=== PATIENT | male | born 1995 | race Caucasian/White ===

== ENCOUNTER 2021-02-13 02:26 | Inpatient (IN) ==
[2021-02-13] MEDS ORDERED: 0.9 % Sodium Chloride 1,000 ML IVC ONE (02:50)
[2021-02-13] MEDS ORDERED: Ringers Solution, Lactated 1,000 ML IVC ONE ×2 (02:50→08:58)
[2021-02-13] MEDS ORDERED: Piperacillin/Tazobactam 3.375 GM in Water for inj. (sterile) 20 ML IVP ONE (02:50)
[2021-02-13] MEDS ORDERED: Isovue-370 500 ML BOTTLE IVP ONE (02:50)
[2021-02-13 03:18] LABS: Basophils % 0.3 %; Red Cell Distribution Width 13.2 % (11.5-14.5)
[2021-02-13 03:19] LABS: Basophils # 0.1 K/mcL (0.0-0.2); Hematocrit 37.1 % (37.5-50.1); Hemoglobin 12.4 g/dL (12.9-16.9); Lymphocytes # 1.6 K/mcL (0.6-4.6); Lymphocytes % 6.5 %; Mean Corpuscular HGB Conc 33.4 g/dL (31.6-35.5); Mean Corpuscular Hemoglobin 28.6 pg (28.0-33.3); Mean Corpuscular Volume 85.7 fL (83.0-100.0); Mean Platelet Volume 10.8 fL (9.4-12.4); Monocytes # 2.2 K/mcL (0.0-1.3); Monocytes % 8.9 %; Platelet Count 139 K/mcL (140-400); Red Blood Count 4.33 M/mcL (4.19-5.50); Segmented Neutrophils % 82.3 %; White Blood Count 24.6 K/mcL (4.3-11.1)
[2021-02-13 03:22] LABS: VBG HCO3 23 mEq/L (21-27); VBG PCO2 34 mmHg (41-51); VBG PH 7.44 pH Units (7.32-7.42); VBG PO2 73 mmHg (25-50)
[2021-02-13 03:24] LABS: Neutrophils # 20.3 K/mcL (1.6-8.9)
[2021-02-13 03:27] LABS: INR 1.6; Prothrombin Time 18.1 Seconds (9.4-12.1)
[2021-02-13] MEDS ORDERED: Ketorolac 30 MG/ML VIAL IVP STA (03:27)
[2021-02-13 03:29] LABS: Activated Partial Thrombo Time 31.7 Seconds (26.0-36.0)
[2021-02-13 03:39] LABS: Alanine Aminotransferase 42 Units/L (7-52); Albumin 2.5 g/dL (3.5-5.7); Albumin/Globulin Ratio 0.6 (1.1-2.2); Alkaline Phosphatase 68 Units/L (34-104); Aspartate Amino Transferase 87 Units/L (13-39); BUN/Creatinine Ratio 19 (6-26); Bilirubin,Direct 0.4 mg/dL (0.0-0.2); Bilirubin,Indirect 0.3 mg/dL (0.0-1.0); Bilirubin,Total 0.7 mg/dL (0.3-1.0); Blood Urea Nitrogen 16 mg/dL (6-20); Calcium 7.6 mg/dL (8.6-10.3); Carbon Dioxide 24 mEq/L (23-29); Chloride 94 mEq/L (98-107); Creatine Kinase 13 Units/L (30-223); Globulin 3.9 g/dL (2.4-3.5); Glucose 190 mg/dL (70-105); Magnesium 1.9 mg/dL (1.6-2.6); Osmolality,Calculated 272 (280-300); Sodium 128 mEq/L (136-145); Total Protein 6.4 g/dL (6.4-8.9); eGFR For African Americans > 60 (> 60); eGFR For Non-African Americans > 60 (> 60)
[2021-02-13 03:44] LABS: Platelet Estimate Normal (Normal)
[2021-02-13] MEDS ORDERED: Lidocaine 1% 20 ML MDV ID ONE (04:02)
[2021-02-13] MEDS ORDERED: *HR* Midazolam HCl 5 MG/ML VIAL IVP ONE (04:02)
[2021-02-13 04:11] LABS: Troponin I < 0.03 ng/mL (< 0.04)
[2021-02-13 04:25] LABS: Adenovirus Not Detected (Not Detect); Bordetella Pertussis Not Detected (Not Detect); Chlamydophila pneumoniae Not Detected (Not Detect); Coronavirus 229E Not Detected (Not Detect); Coronavirus HKU1 Not Detected (Not Detect); Coronavirus NL63 Not Detected (Not Detect); Coronavirus OC43 Not Detected (Not Detect); Human Metapneumovirus Not Detected (Not Detect); Human Rhinovirus/Enterovirus Not Detected (Not Detect); Influenza A Subtype 2009 H1 Not Detected (Not Detect); Influenza B Not Detected (Not Detect); Mycoplasma pneumoniae Not Detected (Not Detect); Parainfluenza Virus 1 Not Detected (Not Detect); Parainfluenza Virus 2 Not Detected (Not Detect); Parainfluenza Virus 3 Not Detected (Not Detect); Parainfluenza Virus 4 Not Detected (Not Detect); Respiratory Syncytial Virus Not Detected (Not Detect); SARS-CoV-2 Not Detected (Not Detect)
[2021-02-13 04:25] LABS: Thyroid Stimulating Hormone 2.375 mcIU/mL (0.340-5.600)
[2021-02-13] MEDS ORDERED: Vancomycin 1,750 MG/517.5 ML IV.SOLN IVPB ONE (05:00)
[2021-02-13] MEDS ORDERED: Naloxone 0.4 MG/ML INJ IVP PRN (05:33)
[2021-02-13] MEDS ORDERED: Melatonin 3 MG TABLET PO PRN (05:33)
[2021-02-13] MEDS ORDERED: D5% in Lactated Ringers 1,000 ML IVC SCH (06:00)
[2021-02-13] MEDS ORDERED: Albumin 25% 25gram/100mL 25 GM/100 ML IV.SOLN IVPB ONE (06:11)
[2021-02-13] MEDS ORDERED: 0.9 % Sodium Chloride 1,000 ML IVC SCH ×2 (06:15→10:30)
[2021-02-13] MEDS ORDERED: Perflutren Lipid Microsphere 1.3 ML in 0.9 % Sodium Chloride 8.7 ML IVP PRN ×2 (06:27→09:15)
[2021-02-13] MEDS ORDERED: Nicotine 14 MG PATCH.TD24 TD SCH (06:30)
[2021-02-13] MEDS ORDERED: Norepinephrine 4 MG/254 ML IV.SOLN IVC SCH (09:30)
[2021-02-13] MEDS ORDERED: Piperacillin/Tazobactam 3.375 GM in 0.9 % Sodium Chloride Mini Bag 100 ML IVPB SCH (11:00)
[2021-02-13] MEDS ORDERED: Magnesium Sulfate 1 GM/102 ML PIGGYBACK IVPB ONE (13:23)
[2021-02-13 16:55] LABS: Acinetobacter baumannii by PCR Not Detected (Not Detect); Candida albicans by PCR Not Detected (Not Detect); Candida glabrata by PCR Not Detected (Not Detect); Candida krusei by PCR Not Detected (Not Detect); Candida parapsilosis by PCR Not Detected (Not Detect); Candida tropicalis by PCR Not Detected (Not Detect); Enterobacter cloacae Cmplx PCR Not Detected (Not Detect); Enterobacteriaceae by PCR Not Detected (Not Detect); Enterococcus by PCR Not Detected (Not Detect); Escherichia coli by PCR Not Detected (Not Detect); Klebsiella oxytoca by PCR Not Detected (Not Detect); Klebsiella pneumoniae by PCR Not Detected (Not Detect); Proteus by PCR Not Detected (Not Detect); Pseudomonas aeruginosa by PCR Not Detected (Not Detect); Serratia marcescens by PCR Not Detected (Not Detect); Staphylococcus aureus by PCR DETECTED (Not Detect); Streptococcus agalactiae(B)PCR Not Detected (Not Detect); Streptococcus by PCR Not Detected (Not Detect); Streptococcus pneumoniae PCR Not Detected (Not Detect); Streptococcus pyogenes (A) PCR Not Detected (Not Detect); mecA Methicillin-Resist Gene Not Detected (Not Detect)
[2021-02-13] MEDS ORDERED: Vancomycin 1,250 MG/262.5 ML IV.SOLN IVPB SCH (17:00)
[2021-02-14] MEDS ORDERED: *HR* Enoxaparin 30 MG/0.3 ML SYRINGE SQ SCH (06:00)
== END 2021-02-13 17:06 | disposition short-term general hospital (02) | DRG 720 ==
LOC: EMEROOARM 02:26 → SUATTDRO 05:40 → 2NNU 05:40
PROVIDERS: ADMIT Internal Medicine; ATTEND Family Medicine

== ENCOUNTER 2021-03-28 14:54 | Inpatient (IN) ==
[2021-03-28 20:21] LABS: Basophils # 0.1 K/mcL (0.0-0.2); Basophils % 0.3 %; Eosinophils # 0.2 K/mcL (0.0-0.6); Eosinophils % 1.3 %; Hematocrit 35.4 % (37.5-50.1); Immature Granulocytes % 0.5 % (0-4); Lymphocytes # 2.9 K/mcL (0.6-4.6); Lymphocytes % 19.1 %; Mean Corpuscular HGB Conc 31.1 g/dL (31.6-35.5); Mean Corpuscular Hemoglobin 27.5 pg (28.0-33.3); Mean Corpuscular Volume 88.5 fL (83.0-100.0); Mean Platelet Volume 8.4 fL (9.4-12.4); Monocytes # 0.7 K/mcL (0.0-1.3); Monocytes % 4.9 %; Neutrophils # 11.1 K/mcL (1.6-8.9); Platelet Count 415 K/mcL (140-400); Red Cell Distribution Width 15.2 % (11.5-14.5); Segmented Neutrophils % 73.9 %; White Blood Count 15.1 K/mcL (4.3-11.1)
[2021-03-28 20:43] LABS: BUN/Creatinine Ratio 8 (6-26); Blood Urea Nitrogen 7 mg/dL (6-20); Calcium 8.6 mg/dL (8.6-10.3); Carbon Dioxide 28 mEq/L (23-29); Chloride 109 mEq/L (98-107); Glucose 100 mg/dL (70-105); Osmolality,Calculated 286 (280-300); Potassium 3.6 mEq/L (3.5-5.1); Sodium 139 mEq/L (136-145); Troponin I < 0.03 ng/mL (< 0.04); eGFR For African Americans > 60 (> 60); eGFR For Non-African Americans > 60 (> 60)
[2021-03-28] MEDS ORDERED: Vancomycin 1,250 MG/262.5 ML IV.SOLN IVPB ONE (20:56)
[2021-03-28] MEDS ORDERED: Isovue-370 500 ML BOTTLE IVP ONE (22:47)
[2021-03-28 22:55] LABS: Albumin 3.5 g/dL (3.5-5.7); Albumin/Globulin Ratio 0.9 (1.1-2.2); Bilirubin,Direct 0.1 mg/dL (0.0-0.2); Bilirubin,Indirect 0.1 mg/dL (0.0-1.0); Bilirubin,Total 0.2 mg/dL (0.3-1.0); Globulin 3.9 g/dL (2.4-3.5); Total Protein 7.4 g/dL (6.4-8.9)
[2021-03-29] MEDS ORDERED: *HR* Heparin 5,000 UNIT/ML VIAL IVP ONE (00:40)
[2021-03-29] MEDS ORDERED: *HR* Heparin 5,000 UNIT/ML VIAL IVP PRN (00:40)
[2021-03-29 01:53] LABS: INR 1.1; Prothrombin Time 12.4 Seconds (9.4-12.1)
[2021-03-29 01:54] LABS: Heparin anti-factor XA UFH < 0.04 IU/mL (0.30-0.70)
[2021-03-29 01:55] LABS: Activated Partial Thrombo Time 30.8 Seconds (26.0-36.0)
[2021-03-29 02:08] LABS: Influenza A PCR Negative (Negative); Influenza B PCR Negative (Negative); Resp. Syncytial Virus PCR Negative (Negative)
[2021-03-29 02:09] LABS: SARS-CoV-2 by PCR (In House) Negative (Negative)
[2021-03-29] MEDS: Heparin 25,000UNIT/250ML 1/2NS 25,000 UNIT/250 ML IV.SOLN IVC SCH (02:14)
[2021-03-29] MEDS ORDERED: Naloxone 0.4 MG/ML INJ IVP PRN (02:24)
[2021-03-29] MEDS ORDERED: Ondansetron 4 MG/2 ML VIAL IVP PRN (02:24)
[2021-03-29] MEDS ORDERED: Ipratropium/Albuterol Neb 3 ML IH PRN (02:27)
[2021-03-29] MEDS ORDERED: 0.9 % Sodium Chloride 500 ML IVC PRN (04:31)
[2021-03-29] MEDS ORDERED: Perflutren Lipid Microsphere 1.3 ML in 0.9 % Sodium Chloride 8.7 ML IVP PRN (04:32)
[2021-03-29 04:49] LABS: Basophils # 0.1 K/mcL (0.0-0.2); Basophils % 0.5 %; Eosinophils # 0.3 K/mcL (0.0-0.6); Hematocrit 34.2 % (37.5-50.1); Hemoglobin 10.7 g/dL (12.9-16.9); Immature Granulocytes % 0.4 % (0-4); Lymphocytes # 4.2 K/mcL (0.6-4.6); Lymphocytes % 31.9 %; Mean Corpuscular HGB Conc 31.3 g/dL (31.6-35.5); Mean Corpuscular Hemoglobin 27.6 pg (28.0-33.3); Mean Corpuscular Volume 88.4 fL (83.0-100.0); Mean Platelet Volume 9.2 fL (9.4-12.4); Monocytes # 0.8 K/mcL (0.0-1.3); Monocytes % 6.3 %; Neutrophils # 7.7 K/mcL (1.6-8.9); Platelet Count 433 K/mcL (140-400); Red Blood Count 3.87 M/mcL (4.19-5.50); Red Cell Distribution Width 15.3 % (11.5-14.5); Segmented Neutrophils % 58.9 %; White Blood Count 13.1 K/mcL (4.3-11.1)
[2021-03-29 05:03] LABS: C-Reactive Protein 6 mg/L (Less than 10); Calcium 8.4 mg/dL (8.6-10.3); Carbon Dioxide 25 mEq/L (23-29); Chloride 109 mEq/L (98-107); Glucose 104 mg/dL (70-105); Sodium 138 mEq/L (136-145); eGFR For African Americans > 60 (> 60); eGFR For Non-African Americans > 60 (> 60)
[2021-03-29 05:04] LABS: BUN/Creatinine Ratio 10 (6-26); Blood Urea Nitrogen 8 mg/dL (6-20); Osmolality,Calculated 285 (280-300)
[2021-03-29] MEDS ORDERED: Piperacillin/Tazobactam 3.375 GM in 0.9 % Sodium Chloride Mini Bag 100 ML IVPB SCH (08:00)
[2021-03-29] MEDS: Lactobacillus 1 EACH CAP.SPRINK PO SCH ×2 (08:18→21:49)
[2021-03-29] MEDS ORDERED: Vancomycin 1,250 MG/262.5 ML IV.SOLN IVPB SCH (10:00)
[2021-03-29] MEDS: ceFAZolin 2,000 MG in 0.9 % Sodium Chloride 100 ML IVPB SCH (15:33)
[2021-03-29] MEDS: Acetaminophen 325 MG TABLET PO PRN (19:03)
[2021-03-29] MEDS: *HR* Heparin 5,000 UNIT/ML VIAL IVP PRN (21:48)
[2021-03-30] MEDS: ceFAZolin 2,000 MG in 0.9 % Sodium Chloride 100 ML IVPB SCH ×3 (00:15→15:55)
[2021-03-30] MEDS ORDERED: Nicotine 14 MG PATCH.TD24 TD SCH (00:15)
[2021-03-30] MEDS: Heparin 25,000UNIT/250ML 1/2NS 25,000 UNIT/250 ML IV.SOLN IVC SCH (00:20)
[2021-03-30 03:55] LABS: Basophils # 0.1 K/mcL (0.0-0.2); Basophils % 0.6 %; Eosinophils # 0.2 K/mcL (0.0-0.6); Eosinophils % 1.9 %; Hematocrit 32.3 % (37.5-50.1); Hemoglobin 9.9 g/dL (12.9-16.9); Immature Granulocytes % 0.4 % (0-4); Lymphocytes # 3.5 K/mcL (0.6-4.6); Lymphocytes % 31.1 %; Mean Corpuscular HGB Conc 30.7 g/dL (31.6-35.5); Mean Corpuscular Hemoglobin 27.3 pg (28.0-33.3); Mean Platelet Volume 8.8 fL (9.4-12.4); Monocytes # 0.9 K/mcL (0.0-1.3); Monocytes % 7.7 %; Neutrophils # 6.6 K/mcL (1.6-8.9); Platelet Count 363 K/mcL (140-400); Red Blood Count 3.63 M/mcL (4.19-5.50); Red Cell Distribution Width 14.9 % (11.5-14.5); Segmented Neutrophils % 58.3 %; White Blood Count 11.3 K/mcL (4.3-11.1)
[2021-03-30] MEDS ORDERED: Melatonin 3 MG TABLET PO PRN (03:58)
[2021-03-30 04:14] LABS: Alanine Aminotransferase 12 Units/L (7-52); Albumin 3.2 g/dL (3.5-5.7); Albumin/Globulin Ratio 0.9 (1.1-2.2); Alkaline Phosphatase 57 Units/L (34-104); Aspartate Amino Transferase 12 Units/L (13-39); BUN/Creatinine Ratio 12 (6-26); Bilirubin,Direct 0.1 mg/dL (0.0-0.2); Bilirubin,Indirect 0.1 mg/dL (0.0-1.0); Bilirubin,Total 0.2 mg/dL (0.3-1.0); Blood Urea Nitrogen 12 mg/dL (6-20); Calcium 8.3 mg/dL (8.6-10.3); Carbon Dioxide 27 mEq/L (23-29); Chloride 107 mEq/L (98-107); Globulin 3.6 g/dL (2.4-3.5); Glucose 98 mg/dL (70-105); Osmolality,Calculated 290 (280-300); Potassium 3.9 mEq/L (3.5-5.1); Sodium 140 mEq/L (136-145); Total Protein 6.8 g/dL (6.4-8.9); eGFR For African Americans > 60 (> 60); eGFR For Non-African Americans > 60 (> 60)
[2021-03-30] MEDS: Acetaminophen 325 MG TABLET PO PRN (06:44)
[2021-03-30] MEDS ORDERED: Acetaminophen 325 MG TABLET PO PRN (07:52)
[2021-03-30] MEDS ORDERED: Ketorolac 30 MG/ML VIAL IVP PRN ×2 (07:52→13:46)
[2021-03-30] MEDS: Lactobacillus 1 EACH CAP.SPRINK PO SCH (08:10)
[2021-03-30] MEDS: *HR* Heparin 5,000 UNIT/ML VIAL IVP PRN (10:48)
[2021-03-30 17:01] VITALS: TEMP 97.6
[2021-03-30 18:53] VITALS: BP 113/69; PULSE 111; O2SAT 100
[2021-03-30 20:59] LABS: Hepatitis B Surface Antigen Nonreactive (Nonreactive)
[2021-03-30 21:40] LABS: HIV-1&2 Antibody & p24 Ag Nonreactive (Nonreactive)
[2021-03-30 21:47] LABS: Hepatitis B Core IgM Reactive (Nonreactive)
[2021-03-30 21:50] LABS: Hepatitis A Antibody IgM Nonreactive (Nonreactive)
[2021-03-30 22:51] LABS: Hepatitis C Virus Antibody Reactive (Nonreactive)
== END 2021-03-30 20:05 | disposition left against medical advice (07) | DRG 720 ==
LOC: 2NENU 14:54 → EMEROOARM 14:54 → SUATTDRO 03-29 02:24 → 2NENU 03-29 03:44
PROVIDERS: ADMIT Internal Medicine; ATTEND Pharmacist

== ENCOUNTER 2021-03-31 00:20 | Inpatient (IN) ==
[2021-03-31 01:58] LABS: Basophils # 0.1 K/mcL (0.0-0.2); Basophils % 0.4 %; Eosinophils # 0.2 K/mcL (0.0-0.6); Eosinophils % 1.2 %; Hematocrit 34.9 % (37.5-50.1); Hemoglobin 10.6 g/dL (12.9-16.9); Immature Granulocytes % 0.3 % (0-4); Lymphocytes # 2.4 K/mcL (0.6-4.6); Lymphocytes % 16.9 %; Mean Corpuscular HGB Conc 30.4 g/dL (31.6-35.5); Mean Corpuscular Hemoglobin 27.6 pg (28.0-33.3); Mean Corpuscular Volume 90.9 fL (83.0-100.0); Mean Platelet Volume 9.9 fL (9.4-12.4); Monocytes % 6.6 %; Neutrophils # 10.8 K/mcL (1.6-8.9); Platelet Count 395 K/mcL (140-400); Red Blood Count 3.84 M/mcL (4.19-5.50); Red Cell Distribution Width 15.1 % (11.5-14.5); Segmented Neutrophils % 74.6 %; White Blood Count 14.4 K/mcL (4.3-11.1)
[2021-03-31 02:17] LABS: Alanine Aminotransferase 10 Units/L (7-52); Albumin 3.6 g/dL (3.5-5.7); Albumin/Globulin Ratio 0.9 (1.1-2.2); Alkaline Phosphatase 55 Units/L (34-104); Aspartate Amino Transferase 20 Units/L (13-39); BUN/Creatinine Ratio 17 (6-26); Bilirubin,Total 0.2 mg/dL (0.3-1.0); Blood Urea Nitrogen 14 mg/dL (6-20); Calcium 8.6 mg/dL (8.6-10.3); Carbon Dioxide 23 mEq/L (23-29); Chloride 107 mEq/L (98-107); Globulin 3.9 g/dL (2.4-3.5); Glucose 71 mg/dL (70-105); Osmolality,Calculated 289 (280-300); Potassium 4.7 mEq/L (3.5-5.1); Sodium 140 mEq/L (136-145); Total Protein 7.5 g/dL (6.4-8.9); Troponin I < 0.03 ng/mL (< 0.04); eGFR For African Americans > 60 (> 60); eGFR For Non-African Americans > 60 (> 60)
[2021-03-31] MEDS ORDERED: cefTRIAXone 1,000 MG in Water for inj. (sterile) 10 ML IVP ONE (03:22)
[2021-03-31] MEDS ORDERED: *HR* Enoxaparin 80 MG/0.8 ML SYRINGE SQ STA (10:25)
[2021-03-31] MEDS ORDERED: Melatonin 3 MG TABLET PO PRN (14:09)
[2021-03-31] MEDS ORDERED: Naloxone 0.4 MG/ML INJ IVP PRN (14:09)
[2021-03-31] MEDS: Nicotine 21 MG PATCH.TD24 TD SCH (14:26)
[2021-03-31] MEDS ORDERED: Ketorolac 30 MG/ML VIAL IVP PRN (15:41)
[2021-03-31] MEDS: CeFAZolin 2,000 MG/120 ML BAG IVPB SCH ×2 (15:55→22:50)
[2021-03-31] MEDS ORDERED: Ketorolac 30 MG/ML VIAL IVP SCH (16:00)
[2021-03-31] MEDS: Lactobacillus 1 EACH CAP.SPRINK PO SCH (19:32)
[2021-03-31] MEDS ORDERED: *HR* Enoxaparin 80 MG/0.8 ML SYRINGE SQ SCH (21:00)
[2021-03-31] MEDS ORDERED: Acetaminophen 325 MG TABLET PO ONE (22:57)
[2021-04-01] MEDS ORDERED: Prochlorperazine 10 MG/2 ML VIAL IVP PRN (03:49)
[2021-04-01] MEDS ORDERED: Ketorolac 30 MG/ML VIAL IVP ONE (03:49)
[2021-04-01 04:02] LABS: Basophils # 0.1 K/mcL (0.0-0.2); Basophils % 0.3 %; Eosinophils # 0.1 K/mcL (0.0-0.6); Eosinophils % 0.8 %; Hematocrit 29.3 % (37.5-50.1); Hemoglobin 9.1 g/dL (12.9-16.9); Immature Granulocytes % 0.3 % (0-4); Lymphocytes # 3.4 K/mcL (0.6-4.6); Lymphocytes % 23.3 %; Mean Corpuscular HGB Conc 31.1 g/dL (31.6-35.5); Mean Corpuscular Hemoglobin 27.3 pg (28.0-33.3); Mean Platelet Volume 9.4 fL (9.4-12.4); Monocytes # 1.1 K/mcL (0.0-1.3); Monocytes % 7.3 %; Neutrophils # 9.8 K/mcL (1.6-8.9); Platelet Count 394 K/mcL (140-400); Red Blood Count 3.33 M/mcL (4.19-5.50); Red Cell Distribution Width 15.1 % (11.5-14.5); White Blood Count 14.4 K/mcL (4.3-11.1)
[2021-04-01 04:09] LABS: INR 1.2; Prothrombin Time 13.2 Seconds (9.4-12.1)
[2021-04-01 04:26] LABS: Alanine Aminotransferase 9 Units/L (7-52); Albumin 3.1 g/dL (3.5-5.7); Albumin/Globulin Ratio 0.9 (1.1-2.2); Alkaline Phosphatase 47 Units/L (34-104); Aspartate Amino Transferase 11 Units/L (13-39); BUN/Creatinine Ratio 18 (6-26); Bilirubin,Total 0.3 mg/dL (0.3-1.0); Blood Urea Nitrogen 14 mg/dL (6-20); Carbon Dioxide 22 mEq/L (23-29); Chloride 109 mEq/L (98-107); Globulin 3.3 g/dL (2.4-3.5); Glucose 158 mg/dL (70-105); Magnesium 1.7 mg/dL (1.6-2.6); Osmolality,Calculated 290 (280-300); Phosphorous 3.7 mg/dL (2.7-4.5); Potassium 3.9 mEq/L (3.5-5.1); Sodium 138 mEq/L (136-145); Total Protein 6.4 g/dL (6.4-8.9); eGFR For African Americans > 60 (> 60); eGFR For Non-African Americans > 60 (> 60)
[2021-04-01] MEDS: Nicotine 21 MG PATCH.TD24 TD SCH (09:09)
[2021-04-01] MEDS: CeFAZolin 2,000 MG/120 ML BAG IVPB SCH ×2 (10:10→18:16)
[2021-04-01] MEDS: Lactobacillus 1 EACH CAP.SPRINK PO SCH (10:10)
[2021-04-01 11:23] VITALS: O2SAT 99
[2021-04-01] MEDS ORDERED: *HR* Enoxaparin 80 MG/0.8 ML SYRINGE SQ SCH (12:30)
[2021-04-01 16:20] VITALS: BP 116/65; PULSE 120; TEMP 97.4
== END 2021-04-01 19:00 | disposition short-term general hospital (02) | DRG 720 ==
LOC: EMEROOARM 00:20 → 2ANU 00:20 → SUATTDRO 14:09 → 2ANU 14:28
PROVIDERS: ADMIT Internal Medicine; ATTEND Internal Medicine